=== PATIENT | male | born 1990 | race Caucasian/White ===

== ENCOUNTER 2025-01-19 16:12 | Emergency (ER) | payer OTHER, SELFPAY ==
[2025-01-19 16:22] VITALS: BP 147/70
--- NOTE | 2025-01-19 17:09 | ED.GENMED ---
History of Present Illness
General
Chief Complaint: Headache
Time Seen by Provider: 01/19/25 16:35
History of Present Illness
History of Present Illness:
Patient is a 34-year-old male who presents to the emergency department with tach. He was seen over the weekend for possible seizure and had a large workup including lumbar puncture, MRI, EEG. He was having a headache after the lumbar puncture and
they repeated the CT scan which did not show any acute changes per patient's discharge paperwork. since then he has been complaining of headache. Headache is diffuse. Headache is better when lying down and worse when sitting up or shaking his
head. Denies tingling or weakness. Denies any fever. Headache has not had any sudden changes or worsening
Phy Exam
Physical Exam
Physical Exam:
GENERAL APPEARANCE: NAD, well developed/ well nourished
EYES lids/conjunctiva normal
EARS/NOSE/THROAT Mucous membranes moist, uvula midline without oral pharyngeal erythema, exudate or swelling
HEAD/NECK normocephalic atraumatic, neck is supple.
RESPIRATORY respiratory effort normal, speaks in full sentences, no accessory muscle use. Lungs clear to auscultation without rhonchi, wheezes, rales
CARDIAC Regular rate and rhythm, no edema.
ABDOMINAL Soft, ND/NT. No pulsatile masses on exam, rebound tenderness, Valiente sign or pain over Mcburney's point.
MUSCLES/EXTREMITIES No abnormal range of motion, no swelling. Back with normal appearance post lumbar puncture. There is no swelling or erythema
SKIN Warm, pink and dry. No rashes
NEUROLOGICAL Speech is clear and appropriate. Normal level of consciousness. 5/5 strength in all extremities. Sensation intact throughout cranial nerves II through XII intact.
PSYCH Normal mood and affect. Judgement/competence is appropriate
Course
Orders/Labs/Results
Orders:
Orders
01/19/25 17:06
Butalb/Acetaminophen/Caffeine [Fioricet] 2 tab PO NOW STA
Vital Signs
Initial and Last Documented VS:
Initial Vital Signs
Temp Pulse Resp BP Pulse Ox
97.5 F 74 18 147/70 100
01/19/25 16:22 01/19/25 16:22 01/19/25 16:22 01/19/25 16:22 01/19/25 16:22
Last Documented Vital Signs
Temp Pulse Resp BP Pulse Ox
97.5 F 74 18 147/70 100
01/19/25 16:22 01/19/25 16:22 01/19/25 16:22 01/19/25 16:22 01/19/25 16:22
*Critical Care Note
Total Time (30-74mins, 75-104mins- exclusive of procedures): Not Applicable
ED Attending Note
ED Attending Note
ED Attending Note:
Patient with symptoms typical of post dural tap headache. He has no neurologic deficits and symptoms are mild to moderate. I instructed the patient to stay hydrated and will prescribe fioricet. Instructed to increased caffeine intake. Symptoms
should resolve within the week. I instructed him to follow-up with anesthesiologist for possible blood patch if no improvement after this week
-
Portions of this chart may have been created with voice recognition software.� Occasional wrong word or��sound alike� substitutions may have occurred due to the inherent limitations of voice recognition software.
Discharge Plan
Departure
Patient Disposition: Home (Routine Discharge)
Date of Disposition: 01/19/25
Time of Disposition: 17:12
Patient with high blood pressure during this ER visit?: Yes
Discharge Problem:
Post-dural puncture headache
Instructions: Headaches in adults
Prescriptions:
New
[id number] [Fioricet] 50-300-40 mg capsule
1 cap PO TID MDD 6 caps per day PRN (Reason: headache) Qty: 20 0RF
Referrals:
Deng Lucas DO [Family Provider] -
Interventions
Interventions:
*Risk Screen - Suicide Last Done: 01/19/25 16:18
*General Assessment Last Done: 01/19/25 17:35
*Neglect/Abuse Screening Last Done: 01/19/25 17:35
*ED COVID-19 Vaccine History Last Done: 01/19/25 17:35
*Nursing Disposition Last Done: 01/19/25 17:38
ED- Neurological Assessment Last Done: 01/19/25 17:37
Discharge Date and Time
Discharge Date/Time: 01/19/25 17:39
Print Language: DIVEHI
[2025-01-19] MEDS: FIORICET 2 TAB PO (17:15)
== END 2025-01-19 17:39 | disposition home or self-care (01) ==
LOC: EMR 16:12
PROVIDERS: EMERGENCY PHYSICIAN Emergency Medicine; FAMILY PHYSICIAN Family Medicine
DX: G97.1 Other reaction to spinal and lumbar puncture (principal); Y84.4 Aspiration of fluid as the cause of abnormal reaction of the patient, or of later complication, without mention of misadventure at the time of the procedure
CPT/HCPCS: 99282